=== PATIENT | female | born 1975 | race Caucasian/White ===

== ENCOUNTER 2016-07-04 09:33 | Emergency (ER) | payer MEDICAID, OTHER ==
[2016-07-04 09:58] VITALS: BP 127/91
[2016-07-04] MEDS ORDERED: DIPHTH,PERTUSS(ACELL),TET VAC 0.5 ML VIAL IM ONE ×2 (09:59→10:05)
--- NOTE | 2016-07-04 10:17 | ERNOTE ---
Medical Problem HPI - Narrative Date of Service: 07/04/16 - General Chief Complaint: Laceration Time Seen by Provider: 07/04/16 10:12 Source: patient, RN notes reviewed Exam Limitations: no limitations - Immun/Allergies/Home Medications Immunizations: IMMUNIZATION HX Immunizations Up to Date Yes Allergies/Adverse Reactions: Allergies No Known Allergies Allergy (Verified 07/04/16 09:58) Home Medications: HOME MEDICATIONS Levothyroxine Sodium [Unithroid] 50 mcg PO DAILY 07/04/16 [Last Taken Unknown] - History of Present History Narrative: 41 y/o female ambulatory to the ED for a finger laceration. She was prying apart frozen food with a knife when she cut herself. 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 Date (Duration): 07/04/16 Severity: mild Review of Systems - Review of Systems Constitutional: Absent: recent illness, fever, chills EYE: Present: no symptoms reported ENT: Present: no symptoms reported Respiratory: Present: no symptoms reported Cardiology: Present: no symptoms reported Gastrointestinal/Abdominal: Present: no symptoms reported Genitourinary: Present: no symptoms reported Musculoskeletal: Absent: joint pain, joint swelling Skin: Absent: lesions, lumps, change in color Neurological: Absent: weakness, numbness, tingling Endocrine: Present: no symptoms reported Hematologic/Lymphatic: Present: no symptoms reported Psych: Present: no symptoms reported - Patient's Past Medical History Patient History - Medical: No pertinent hx Patient History - Cardiac/Respiratory: No pertinent hx Patient History - Cancer: No Hx of Cancer Patient History - Surgical Procedures: Appendectomy, T & A LMP (Calendar): 06/20/16 - Social History Living Situations: home Smoking Status: Current every day smoker Cigarettes Packs Per Day: 0.5 Have you smoked in the past 12 months: Yes Alcohol Use: none Drug Use: none - Immunizations Immunizations Up to Date: Yes - tetanus given today Physical Exam - Physical Exam General Appearance: Present: wd/wn, alert, no apparent distress Respiratory: Present: no respiratory distress, no accessory muscle use Cardiovascular/Chest: Present: normal peripheral pulses Extremity Exam: Present: normal except - - Left middle finger laceration, normal range of motion, no edema Neurological Exam: Present: alert, oriented, normal mood/affect, no motor/ sensory deficits Skin Exam: Present: normal color, warm/dry ED Progress - Vital Signs Patient's Vital Signs:: I have reviewed the patient's vital signs. Vital Signs: Vital Signs 07/04/16 09:54 Temperature 36.5 C Pulse Rate 82 Respiratory 14 Rate Blood Pressure 127/91 O2 Sat by Pulse 98 Oximetry - Progress/Reassessment Chief Complaint: Laceration Progress:: Improved Procedures Left Proximal Volar Hand 3rd Digit Anesthesia: 1% Lidocaine I & D Prep: betadine prep, sterile drapes applied Length of Repair/Wound (cm): 1 Wound's Depth/Shape: into subcutaneous, linear Wound Explored: clean, to base, in bloodless field, no foreign body Wound Intervention: irrigated w/saline Distal NVT: neuro/vasc intact, no tendon injury Wound Repaired With: sutures Suture Size/Type: 4-0, nylon Number of Sutures: 2 Layer Closure: Simple Wound Dressing: sterile dressing applied Complications: Pt raul procedure well Departure - Departure Clinical Impression: Finger laceration Qualifiers: Encounter type: initial encounter Qualified Code(s): S61.219A - Laceration without foreign body of unspecified finger without damage to nail, initial encounter Disposition: Home Follow Up Needed Condition: Good Instructions: Sutured Wound Care, [id number] Additional Instructions: Keep dressing dry and in place for 48 hours Can then wash gently with soap and water as needed but do not soak wound in water for prolonged periods Apply antibiotic ointment and bandage as needed Have sutures removed in 1 wk in occupational health Tylenol and/or ibuprofen if needed for pain Elevate, cold compresses if needed Referrals: Sanjana Gómez FNP [[facility]] -
== END 2016-07-04 10:59 | disposition home or self-care (01) ==
LOC: ER 09:33
PROC: 0JQK0ZZ Repair Left Hand Subcutaneous Tissue and Fascia, Open Approach (ICD-10-PCS; principal; 2016-07-04)
DX: S61.219A Laceration without foreign body of unspecified finger without damage to nail, initial encounter (principal); Z72.0 Tobacco use; Z23 Encounter for immunization; X58.XXXA Exposure to other specified factors, initial encounter; Y93.G3 Activity, cooking and baking; Y92.219 Unspecified school as the place of occurrence of the external cause; Y99.0 Civilian activity done for income or pay